=== PATIENT | male | born 1935 | race Two or more races ===

== ENCOUNTER 2016-12-21 23:59 | Emergency (ER) | payer OTHER ==
[~2016-12-21] VITALS: Ht 180.3 cm; Wt 72.6 kg
[~2016-12-21 23:59] MED LIST: AMIO200T2 PO; ASPI-605 PO; ATOR40TA PO; CARV40CP PO; CHOL200026 PO; CLOP75TA2 PO; EZET10TA PO; GLIM2TAB2 PO; LEVO125T8 PO; SITA100T PO; VALS80TA2 PO; WARF3TAB6 PO
[2016-12-22 00:05] VITALS: BP 95/53
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
[2016-12-22] MEDS ORDERED: IV NS 0.9% 1,000 ML ONE (00:29)
[2016-12-22] MEDS ORDERED: IV SET PRIMARY 1 EA INFUS.SET MC ONE (00:29)
[2016-12-22] MEDS ORDERED: IV NS 0.9% 1,000 ML BAG IV ONE (00:30)
[2016-12-22 00:32] LABS: BASOPHILS % (AUTO) 0.5 % (0.0-2.0); EOSINOPHILS # (AUTO) 0.2 /CMM (0.0-0.7); EOSINOPHILS % (AUTO) 3.2 % (0.0-6.0); HEMATOCRIT 37 % (39-51); HEMOGLOBIN 12.1 g/dL (13.5-17.5); LYMPHOCYTES # (AUTO) 0.8 /CMM (0.8-4.8); LYMPHOCYTES % (AUTO) 16.1 % (20.0-44.0); MEAN CORPUSCULAR HEMOGLOBIN 32 PG (26.0-33.0); MEAN CORPUSCULAR HGB CONC 33 g/dl (31.0-36.0); MEAN CORPUSCULAR VOLUME 97 fL (80-96); MONOCYTES # (AUTO) 0.3 /CMM (0.1-1.30); MONOCYTES % (AUTO) 5.7 % (2.0-12.0); NEUTROPHILS # (AUTO) 3.7 /CMM (1.8-8.9); NEUTROPHILS % (AUTO) 74.5 % (43.0-81.0); PLATELET COUNT (AUTO) 261 /CMM (150-450); RDW COEFFICIENT OF VARIATION 14.2 (11.5-15.0); RED BLOOD CELL COUNT(AUTO) 3.82 MIL/uL (4.5-6.0)
[2016-12-22 00:42] LABS: CALCIUM, SERUM 8.8 mg/dL (8.5-10.1); CARBON DIOXIDE 25 mmol/L (21-32); CHLORIDE 103 mmol/L (98-107); CREATININE 1.7 mg/dL (0.6-1.3); GLUCOSE 279 mg/dL (74-106); POTASSIUM 4.7 mmol/L (3.5-5.1); SODIUM SERUM 139 mmol/L (136-145); UREA NITROGEN, BLOOD 26 mg/dL (7-18)
[2016-12-22 00:46] LABS: INR 1.07 (0.87-1.13); PROTHROMBIN TIME 11.5 SECS (9.5-12.7)
[2016-12-22 00:50] LABS: TROPONIN I < 0.017 ng/mL (0.00-0.056)
[2016-12-22 00:52] LABS: ALANINE AMINOTRANSFERASE 15 U/L (12-78); ALBUMIN 3.2 g/dL (3.4-5.0); ALKALINE PHOSPHATASE 50 U/L (46-116); ASPARTATE AMINOTRANSFERASE 13 U/L (15-37); BILIRUBIN,DIRECT 0.1 mg/dL (0.0-0.2); BILIRUBIN,TOTAL 0.3 mg/dL (0.2-1.0); TOTAL PROTEIN, SERUM 6.9 g/dL (6.4-8.2)
== END 2016-12-22 01:53 | disposition left against medical advice (07) ==
LOC: ER 12-22 00:01
DX: R55 Syncope and collapse (principal); E11.9 Type 2 diabetes mellitus without complications; I25.2 Old myocardial infarction; I10 Essential (primary) hypertension; Z79.01 Long term (current) use of anticoagulants; Z79.82 Long term (current) use of aspirin; Z95.0 Presence of cardiac pacemaker
CPT/HCPCS: 36415; 70450; 71010; 80048; 80076; 84484; 85025; 85730; 93005; 96360; 99285; A4606; J7030; Z7610

== ENCOUNTER 2017-06-03 07:57 | Inpatient (IN) | payer MEDICAID, OTHER ==
[~2017-06-03] VITALS: Ht 154.9 cm; Wt 68.0 kg
--- NOTE | 2017-06-03 07:59 | NUR ---
BB C/O HEMATURIA, DYSURIA x 2 DAYS LEFT ELBOW PAIN/SWELLING x 1 DAY
--- NOTE | 2017-06-03 08:15 | NUR ---
DR SULTANA AT BEDSIDE FOR EVAL
--- NOTE | 2017-06-03 08:20 | NUR ---
URINE SAMPLE COLLECTED SENT TO LAB
[2017-06-03 08:38] LABS: APPEARANCE,URINE CLOUDY (CLEAR); BILIRUBIN,URINE NEGATIVE (NEGATIVE); BLOOD, URINE 3+ Ery/uL (NEGATIVE); COLOR,URINE RED (YELLOW); KETONES,URINE NEGATIVE (NEGATIVE); LEUKOCYTE ESTERASE ,URINE NEGATIVE (NEGATIVE); NITRITE, URINE NEGATIVE (NEGATIVE); PROTEIN,URINE 2+ mg/dl (NEGATIVE); UGLUCOSE NEGATIVE (NEGATIVE); UROBILINOGEN,URINE 0.2 EU/dL (0.2)
[2017-06-03 08:45] LABS: BACTERIA,URINE Few /HPF (None Seen); RBC,URINE TOO NUMEROUS TO COUN /HPF (0-2); SQUAMOUS EPITHELIAL CELL,UR 0-2 /HPF (None Seen)
[2017-06-03 08:46] LABS: BASOPHILS % (AUTO) 0.4 % (0.0-2.0); EOSINOPHILS # (AUTO) 0.2 /CMM (0.0-0.7); EOSINOPHILS % (AUTO) 2.7 % (0.0-6.0); HEMATOCRIT 35 % (39-51); HEMOGLOBIN 11.6 g/dL (13.5-17.5); LYMPHOCYTES % (AUTO) 17.4 % (20.0-44.0); MEAN CORPUSCULAR HEMOGLOBIN 32 PG (26.0-33.0); MEAN CORPUSCULAR HGB CONC 34 g/dl (31.0-36.0); MEAN CORPUSCULAR VOLUME 97 fL (80-96); MONOCYTES # (AUTO) 0.5 /CMM (0.1-1.30); MONOCYTES % (AUTO) 8.8 % (2.0-12.0); NEUTROPHILS # (AUTO) 4.1 /CMM (1.8-8.9); NEUTROPHILS % (AUTO) 70.7 % (43.0-81.0); PLATELET COUNT (AUTO) 212 /CMM (150-450); RDW COEFFICIENT OF VARIATION 13.4 (11.5-15.0); RED BLOOD CELL COUNT(AUTO) 3.58 MIL/uL (4.5-6.0); WHITE BLOOD COUNT (AUTO) 5.8 K/uL (4.3-11.0)
[2017-06-03 08:58] LABS: CALCIUM, SERUM 8.7 mg/dL (8.5-10.1); CARBON DIOXIDE 27 mmol/L (21-32); CHLORIDE 105 mmol/L (98-107); CREATININE 1.2 mg/dL (0.6-1.3); GLUCOSE 100 mg/dL (74-106); POTASSIUM 4.6 mmol/L (3.5-5.1); SODIUM SERUM 139 mmol/L (136-145); UREA NITROGEN, BLOOD 24 mg/dL (7-18)
[2017-06-03 09:40] LABS: INR > 10.00 (0.87-1.13); PROTHROMBIN TIME > 100.0 SECS (9.5-12.7)
[2017-06-03 09:41] LABS: PARTIAL THROMBOPLASTIN TIME 70 SEC (23-34)
--- NOTE | 2017-06-03 09:43 | NUR ---
CRITICAL LABS REPORTED TO DR. BRADY. FAJARDO TO ADD NEW ORDERS.
--- NOTE | 2017-06-03 09:45 | NUR ---
NEW IV STARTED ON LAC, 20 G. BLOOD DRAWN AND SENT TO LAB.
--- NOTE | 2017-06-03 09:59 | NUR ---
ERICKA OCAMPO FOR ADMISSION
[2017-06-03] MEDS ORDERED: PHYTONADIONE 5 MG TABLET PO ONE ×2 (10:00→10:30)
[2017-06-03] MEDS ORDERED: NS 0.9% IV ONE (10:30)
[2017-06-03] MEDS ORDERED: PHYTONADIONE IV ONE (10:30)
--- NOTE | 2017-06-03 10:46 | NUR ---
REPORT GIVEN TO ESTEBAN REINOSO FOR ADMISSION.
--- NOTE | 2017-06-03 11:07 | NUR ---
PATIENT TRANSPORTED TO [facility] VIA WHEELCHAIR FOR ADMISSION. RNESTEBAN TO PROVIDE KAROLINA.
--- NOTE | 2017-06-03 11:15 | NUR ---
RN INITIAL NOTE PATIENT ARRIVES TO THE UNIT IN WHEEL CHAIR FROM ED . PATIENT IS ON ROOM AIR VITALS WITHIN NORMAL LIMITED , NOTED HEMAURIA UPON USING THE REST ROOM , PATIENT HAS NO COMPLAINTS OF PAIN, OR SOB NOTED , PATIENT HAS NOTED BRUISE ON HIS LEFT ELBOW MINOR SWELLING NOTED , PAIN STATES NO PAIN , PATIENT STATES HE WANTS TO KEEP HIS PERSONAL CLOTHES ON , RN UNABLE TO TAKE A PICTURE OF THE PATIENTS ARM HOWEVER WILL ENDORSE TO PM SHIFT. PATIENT RESTING IN BED RN WILL CONTINUE TO MONITOR AT BEDSIDE. AND HELP TRANSLATE PATIENT ONLY INDONESIAN SPEAKING
[2017-06-03] MEDS ORDERED: MAGNESIUM HYDROXIDE 30 ML UDC PO PRN (11:30)
[2017-06-03] MEDS ORDERED: HYDROCODONE/APAP 5/325MG 1 EACH TABLET PO PRN (11:30)
[2017-06-03] MEDS ORDERED: Z GUARD REMEDY 2 OZ OINT TP PRN (11:30)
[2017-06-03] MEDS ORDERED: ONDANSETRON HCL/PF 4 MG/2 ML VIAL IVP PRN (11:30)
[2017-06-03] MEDS ORDERED: ZOLPIDEM TARTRATE 5 MG TABLET PO PRN (11:30)
[2017-06-03] MEDS ORDERED: DEXTROSE 50%-WATER 50 ML DISP.SYRIN IV PRN (11:30)
[2017-06-03] MEDS ORDERED: ACETAMINOPHEN 325 MG TABLET PO PRN (11:30)
[2017-06-03] MEDS ORDERED: MAG HYDROX/AL HYDROX/SIMETH 30 ML UDC PO PRN (11:30)
[2017-06-03] MEDS: BLOOD SUGAR DIAGNOSTIC 1 EACH STRIP VI SCH ×3 (12:36→22:35)
[2017-06-03] MEDS: CHOLECALCIFEROL 1,000 UNIT TABLET (VIT D3) PO SCH (12:38)
[2017-06-03] MEDS: INSULIN REGULAR, HUMAN 100 UNIT/ML 3 ML VIAL SQ PRN ×2 (12:40→17:44)
[2017-06-03 16:00] VITALS: BP 129/67
[2017-06-03] MEDS: ATORVASTATIN 40 MG TABLET PO SCH (17:41)
--- NOTE | 2017-06-03 17:57 | NUR ---
RN NOTE PATIENT STABLE THROUGHOUT THE DAY NO COMPLAINTS OF PAIN OR SOB NOTED , PATIENT ARM DRESSED WITH MEPILEX AND BURN NET PER PATIENTS REQUEST PATIENT HAS LEFT BUT NUMBER HAS BEEN PLACE ON PATIENT BORDER IF WE NEED ANYTHING. PATIENT COMPLAINED THAT TV IN RM 105 NOT WORKING PROPERLY ENGINEERING CONTACTED AND STATED THEY HAVE A WORK ORDER FOR THE AM TO FIX IT. PATIENT CBG CHECKED X2 BOTH TIME PATIENT BLOOD SUGAR WAS ELEVATED HOWEVER PATIENT AND STATES HE DOES NOT TAKE INSULIN AT HOME AND DECLINE IT AT THIS TIME , RN WILL CONTINUE TO FOLLOW AND ENDORSE CARE TO PM RN
--- NOTE | 2017-06-03 19:15 | NUR ---
RN INITIAL NOTES RECEIVED PATIENT AWAKE AND ALERT, PATIENT IS THAI SPEAKING WITH AT BEDSIDE. PATIENT'S NEEDS ANTICIPATED AND MET AT THIS TIME. PATIENT WITH NO C/O PAIN AND DISCOMFORT. NOT IN ANY FORM OF DISTRESS. PATIENT IS ON ROOM AIR. L AC G20, FLUSHED AND PATENT, NO SIGNS OF INFILTRATION. WILL MONITOR PATIENT FOR FURTHER BLEEDING/BRUISING. PATIENT REPORTS HEMATURIA AND DYSURIA AT THIS TIME. NEEDS ANTICIPATED AND MET. SAFETY AND COMFORT ENSURED. BED IN LOW AND LOCKED POSITION. CALL LIGHT IN REACH. WILL MONITOR.
[2017-06-03 20:00] VITALS: BP 134/67
--- NOTE | 2017-06-03 22:30 | NUR ---
RN NOTES PATIENT'S BLOOD SUGAR CHECKED, NOTED TO BE 83, NO INSULIN GIVEN PER SLIDING SCALE.
[2017-06-03] MEDS: CARVEDILOL 12.5 MG TABLET PO SCH (22:32)
[2017-06-04 04:00] VITALS: BP 110/56
--- NOTE | 2017-06-04 06:47 | NUR ---
RN CLOSING NOTES PATIENT SLEEPING COMFORTABLY AT THIS TIME, NO DISTRESS, ON ROOM AIR. PATIENT'S NEEDS ANTICIPATED AND MET. ALL DUE MEDS GIVEN ORDERED. AM LABS DRAWN. SAFETY AND COMFORT ENSURED. BED IN LOW AND LOCKED POSITION. CALL LIGHT IN REACH. WILL ENDORSE ACCORDINGLY FOR CONTINUITY OF CARE.
[2017-06-04 07:04] LABS: BASOPHILS % (AUTO) 0.3 % (0.0-2.0); EOSINOPHILS # (AUTO) 0.2 /CMM (0.0-0.7); EOSINOPHILS % (AUTO) 3.1 % (0.0-6.0); HEMATOCRIT 32 % (39-51); HEMOGLOBIN 10.7 g/dL (13.5-17.5); LYMPHOCYTES % (AUTO) 18.7 % (20.0-44.0); MEAN CORPUSCULAR HEMOGLOBIN 33 PG (26.0-33.0); MEAN CORPUSCULAR HGB CONC 34 g/dl (31.0-36.0); MEAN CORPUSCULAR VOLUME 97 fL (80-96); MONOCYTES # (AUTO) 0.5 /CMM (0.1-1.30); MONOCYTES % (AUTO) 9.5 % (2.0-12.0); NEUTROPHILS # (AUTO) 3.7 /CMM (1.8-8.9); NEUTROPHILS % (AUTO) 68.4 % (43.0-81.0); PLATELET COUNT (AUTO) 178 /CMM (150-450); RDW COEFFICIENT OF VARIATION 13.7 (11.5-15.0); RED BLOOD CELL COUNT(AUTO) 3.26 MIL/uL (4.5-6.0); WHITE BLOOD COUNT (AUTO) 5.4 K/uL (4.3-11.0)
[2017-06-04 07:15] LABS: INR 3.76 (0.87-1.13); PROTHROMBIN TIME 43.8 SECS (9.5-12.7)
--- NOTE | 2017-06-04 07:34 | NUR ---
INITIAL MS RN NOTE RCVD PT AWAKE AND ALERT, GABONESE SPEAKING. SHOWING NO S/O DISTRESS OR C/O PAIN AT THIS TIME. ON RA TOLERATING WELL. AMBULATORY WITH STEADY GAIT. BRP PRIVILEGES. IV SITE C/D/I/PATENT. NO S/O INFILTRATION/PHLEBITIS OBSERVED UPON FLUSHING. WILL CONTINUE TO MONITOR PT FOR SAFETY AND COMFORT. CALL LIGHT WITHIN REACH. BED IN LOW AND LOCKED POSITION.
[2017-06-04 07:37] LABS: CALCIUM, SERUM 8.2 mg/dL (8.5-10.1); CARBON DIOXIDE 28 mmol/L (21-32); CHLORIDE 105 mmol/L (98-107); CREATININE 1.2 mg/dL (0.6-1.3); GLUCOSE 124 mg/dL (74-106); MAGNESIUM 1.7 mg/dL (1.8-2.4); PHOSPHORUS 3.3 mg/dL (2.5-4.9); POTASSIUM 4.3 mmol/L (3.5-5.1); SODIUM SERUM 139 mmol/L (136-145); UREA NITROGEN, BLOOD 22 mg/dL (7-18)
[2017-06-04 08:00] VITALS: BP 119/61
[2017-06-04] MEDS: PANTOPRAZOLE 40 MG TABLET.DR PO SCH (08:29)
[2017-06-04] MEDS: BLOOD SUGAR DIAGNOSTIC 1 EACH STRIP VI SCH ×4 (08:29→21:43)
[2017-06-04] MEDS: CARVEDILOL 12.5 MG TABLET PO SCH ×2 (08:30→21:35)
[2017-06-04] MEDS: LEVOTHYROXINE SODIUM 125 MCG TABLET PO SCH (08:30)
[2017-06-04] MEDS: VALSARTAN 80 MG TABLET PO SCH (08:30)
[2017-06-04] MEDS: CHOLECALCIFEROL 1,000 UNIT TABLET (VIT D3) PO SCH (08:30)
[2017-06-04] MEDS: EZETIMIBE 10 MG TABLET PO SCH (08:30)
[2017-06-04] MEDS: AMIODARONE HCL 200 MG TABLET PO SCH (08:32)
[2017-06-04] MEDS: Magnesium 1GM/D5W 100ML PREMIX 100 ML IV SCH ×2 (10:12→11:11)
--- NOTE | 2017-06-04 11:20 | NUR ---
MS RN NOTE PT'S AT BEDSIDE UPDATED ON PT'S CONDITION. DR. OCAMPO ASSESSED PT.
[2017-06-04] MEDS: INSULIN REGULAR, HUMAN 100 UNIT/ML 3 ML VIAL SQ PRN (11:54)
--- NOTE | 2017-06-04 15:21 | NUR ---
MS RN NOTE VIA INDUSTRIAL WASTE INSPECTOR PT WAS ASKED ABOUT BED BATH. PT REFUSES BED BATH AT THIS TIME.
[2017-06-04 16:00] VITALS: BP 112/56
[2017-06-04] MEDS: ATORVASTATIN 40 MG TABLET PO SCH (17:04)
--- NOTE | 2017-06-04 17:13 | NUR ---
Per report,patient lives at home with family. He is ambulatory and independent with adl's. Has good family support.No DME or homehealth reported. Addendum: 06/04/17 at 1713 by JOSE CHAUDHARY RN Amended: Links added.
--- NOTE | 2017-06-04 19:09 | NUR ---
MS RN NOTE PT REMAINS STABLE, NO S/O BLEEDING OBSERVED. PT'S CARE ENDORSED TO CONVEX GRINDER RN FOR CONTINUITY OF CARE.
[2017-06-04 20:00] VITALS: BP_SYST 116; BP_SYST 152; BP_DIAS 104; BP_DIAS 57
--- NOTE | 2017-06-04 20:00 | NUR ---
RN INITIAL NOTES RECEIVED PATIENT IN BED, DENIES ANY PAIN AND DISCOMFORT. NO ACUTE BLEEDING NOTED. ON ROOM AIR WITH NO DISTRESS. L AC G20, FLUSHED AND PATENT. NEEDS ANTICIPATED AND MET.SAFETY AND COMFORT ENSURED. BED IN LOW AND LOCKED POSITION. CALL LIGHT IN REACH. WILL MONITOR.
[2017-06-04] MEDS: *INSULIN REGULAR(HUMULIN R)HUM 100 UNIT/ML VIAL SQ PRN (21:47)
--- NOTE | 2017-06-04 21:48 | NUR ---
RN NOTES [id number]. PATIENT AND PATIENT'S , KATHIA, NOTIFIED OF THE BS LEVEL. EXPLAINED THE RISKS AND BENEFITS OF INSULIN ADMINISTRATION PER SLIDING SCALE. PATIENT AND FAMILY STRONGLY REFUSED, PER (LOCKSTITCH BACK MAKER) PATIENT IS NOT USED OR USING INSULIN AND DOES NOT WANT TO BE DEPENDENT ON IT. HOME MEDS REVIEWED, PATIENT WAS TAKING JANUVIA AND GLIMEPIRIDE, CURRENTLY BEING HELD UPON ADMIT, WILL F/UP ACCORDINGLY WITH MD FOR FURTHER ORDERS. HEALTH TEACHING PROVIDED TO PATIENT AND FAMILY. WILL MONITOR FOR ANY SIGNS OF HYPO/HYPERGLYCEMIA.
[2017-06-05 04:00] VITALS: BP 113/52
--- NOTE | 2017-06-05 06:45 | NUR ---
RN CLOSING NOTES PATIENT WITH NO ACUTE DISTRESS AND CHANGE IN CONDITION OBSERVED OVERNIGHT. ALL DUE MEDS GIVEN ORDERED. AM LABS DRAWN. SAFETY AND COMFORT ENSURED. BED IN LOW AND LOCKED POSITION. CALL LIGHT IN REACH. WILL ENDORSE ACCORDINGLY FOR CONTINUITY OF CARE.
--- NOTE | 2017-06-05 07:05 | NUR ---
MS RN NOTE RECEIVED PT AWAKE WALKING IN ROOM WITH STEADY GAIT. PT IS DIVEHI SPEAKING, ON RA, RESPIRATIONS EVEN AND UNLABORED WITH NO SOB. LAC INTACT AND PATENT. BED LOW, LOCKED, X2 SIDE RAILS UP WITH CALL LIGHT WITHIN REACH. WILL CONT TO MONITOR.
[2017-06-05] MEDS: BLOOD SUGAR DIAGNOSTIC 1 EACH STRIP VI SCH ×4 (07:46→21:07)
[2017-06-05 08:00] VITALS: BP 111/60
[2017-06-05] MEDS: CARVEDILOL 12.5 MG TABLET PO SCH ×2 (08:52→21:08)
[2017-06-05] MEDS: EZETIMIBE 10 MG TABLET PO SCH (08:52)
[2017-06-05] MEDS: AMIODARONE HCL 200 MG TABLET PO SCH (08:52)
[2017-06-05] MEDS: LEVOTHYROXINE SODIUM 125 MCG TABLET PO SCH (08:52)
[2017-06-05] MEDS: CHOLECALCIFEROL 1,000 UNIT TABLET (VIT D3) PO SCH (08:53)
[2017-06-05] MEDS: VALSARTAN 80 MG TABLET PO SCH (08:53)
[2017-06-05] MEDS: PANTOPRAZOLE 40 MG TABLET.DR PO SCH (08:53)
[2017-06-05] MEDS: INSULIN REGULAR, HUMAN 100 UNIT/ML 3 ML VIAL SQ PRN ×3 (08:58→18:35)
[2017-06-05 09:08] LABS: CALCIUM, SERUM 8.9 mg/dL (8.5-10.1); CARBON DIOXIDE 28 mmol/L (21-32); CHLORIDE 104 mmol/L (98-107); CREATININE 1.3 mg/dL (0.6-1.3); GLUCOSE 152 mg/dL (74-106); POTASSIUM 4.6 mmol/L (3.5-5.1); SODIUM SERUM 140 mmol/L (136-145); UREA NITROGEN, BLOOD 20 mg/dL (7-18)
[2017-06-05 09:12] LABS: BASOPHILS % (AUTO) 0.3 % (0.0-2.0); EOSINOPHILS # (AUTO) 0.2 /CMM (0.0-0.7); EOSINOPHILS % (AUTO) 2.6 % (0.0-6.0); HEMATOCRIT 35 % (39-51); HEMOGLOBIN 11.6 g/dL (13.5-17.5); LYMPHOCYTES # (AUTO) 0.9 /CMM (0.8-4.8); LYMPHOCYTES % (AUTO) 13.7 % (20.0-44.0); MEAN CORPUSCULAR HEMOGLOBIN 32 PG (26.0-33.0); MEAN CORPUSCULAR HGB CONC 33 g/dl (31.0-36.0); MEAN CORPUSCULAR VOLUME 97 fL (80-96); MONOCYTES # (AUTO) 0.5 /CMM (0.1-1.30); MONOCYTES % (AUTO) 8.4 % (2.0-12.0); NEUTROPHILS # (AUTO) 4.7 /CMM (1.8-8.9); PLATELET COUNT (AUTO) 211 /CMM (150-450); RDW COEFFICIENT OF VARIATION 13.7 (11.5-15.0); RED BLOOD CELL COUNT(AUTO) 3.65 MIL/uL (4.5-6.0); WHITE BLOOD COUNT (AUTO) 6.3 K/uL (4.3-11.0)
[2017-06-05 09:13] LABS: ALANINE AMINOTRANSFERASE 22 U/L (12-78); ALBUMIN 3.6 g/dL (3.4-5.0); ALKALINE PHOSPHATASE 49 U/L (46-116); ASPARTATE AMINOTRANSFERASE 19 U/L (15-37); BILIRUBIN,TOTAL 0.7 mg/dL (0.2-1.0); PHOSPHORUS 3.2 mg/dL (2.5-4.9); TOTAL PROTEIN, SERUM 7.4 g/dL (6.4-8.2)
[2017-06-05 09:18] LABS: INR 3.71 (0.87-1.13); PROTHROMBIN TIME 43.2 SECS (9.5-12.7)
[2017-06-05 16:00] VITALS: BP 128/83
[2017-06-05 16:15] VITALS: BP_SYST 115; BP_SYST 128; BP_DIAS 47; BP_DIAS 83
[2017-06-05] MEDS: ATORVASTATIN 40 MG TABLET PO SCH (18:35)
--- NOTE | 2017-06-05 19:00 | NUR ---
MS RN NOTE: NO ACUTE CHANGES DURING SHIFT. PATIENT REMAINS AWAKE AND ORIENTED. ORDERS CARRIED OUT. BED LOW, LOCKED, X2 SIDE RAILS UP WITH CALL LIGHT WITHIN REACH. WILL ENDORSE TO ENGINEERING PROGRAM MANAGER NURSE FOR KAROLINA.
--- NOTE | 2017-06-05 19:50 | NUR ---
RN INITIAL NOTES: RECEIVED REPORT FROM MEAGHAN RN, PT IN BED, AWAKE, A/O X3, RESPIRATION EVEN AND UNLABORED, NO FACIAL GRIMACE NOTED, PT UZBEK SPEAKING, RECEIVED WITHOUT IV ACCESS, PRESSURED DRESSING NOTED ON LFA. PT REFUSING SCD, SAFETY PRECAUTIONS FOR FALL INITIATED CALL LIGHT IN REACH, WILL CONTINUE TO MONITOR
[2017-06-05 20:00] VITALS: BP 131/64
--- NOTE | 2017-06-05 21:00 | NUR ---
RN NOTES: REINSERTED NEW IV ACCESS, Garfield GILMORE G 22, HL
[2017-06-05] MEDS: *INSULIN REGULAR(HUMULIN R)HUM 100 UNIT/ML VIAL SQ PRN (21:07)
--- NOTE | 2017-06-05 21:30 | NUR ---
ACCU CHECK: BLOOD SUGAR CHECKED AND REVEAL 103, NO INSULIN COVERAGE GIVEN PER SLIDING SCALE, WILL MONITOR PT FOR ANY S/S OF HYPO OR HYPERGLYCEMIA
[2017-06-05 22:00] VITALS: BP 120/57
[2017-06-06 04:00] VITALS: BP 114/57
[2017-06-06] MEDS: INSULIN REGULAR, HUMAN 100 UNIT/ML 3 ML VIAL SQ PRN (06:15)
[2017-06-06] MEDS: BLOOD SUGAR DIAGNOSTIC 1 EACH STRIP VI SCH (06:15)
--- NOTE | 2017-06-06 06:15 | NUR ---
ACCU CHECK: BLOOD SUGAR TAKEN AND REVEAL 110, NO INSULIN COVERAGE GIVEN PER SLIDING SCALE, WILL MONITOR PT FOR ANY S/S OF HYPO OR HYPERGLYCEMIA
--- NOTE | 2017-06-06 06:51 | NUR ---
RN CLOSING NOTES: PT IN BED, AWAKE, NO SOB NOTED, DENIES ANY PAIN OR DISCOMFORT, NO ACTIVE BLEEDING NOTED, VS REMAINS STABLE, NEEDS ATTENDED, SAFETY PRECAUTIONS FOR FALL REMAINS ENGAGED, CALL LIGHT IN REACH, WILL ENDORSE TO DAY RN FOR KAROLINA.
[2017-06-06 07:05] LABS: INR 3.99 (0.87-1.13); PROTHROMBIN TIME 46.6 SECS (9.5-12.7)
[2017-06-06] MEDS: PANTOPRAZOLE 40 MG TABLET.DR PO SCH (07:30)
--- NOTE | 2017-06-06 07:30 | NUR ---
MS RN NOTES RECEIVED PATIENT A/OX4 DENIES SOB, DIFFICULTY BREATHING OR PAIN. PATIENT STATES NO MORE BLOOD IN URINE AND NO ACTIVE BLEEDING. ALL NEEDS IN REACH, BED LOWERED AND LOCKED, RAILS UPX3 FOR SAFETY AND WILL ROUND Q2H OR LESS PER NEEDS. ASSISTED TRANSLATION WITH RT AT BEDSIDE.
[2017-06-06 08:00] VITALS: BP 116/64
[2017-06-06] MEDS: EZETIMIBE 10 MG TABLET PO SCH (08:16)
[2017-06-06] MEDS: LEVOTHYROXINE SODIUM 125 MCG TABLET PO SCH (08:16)
[2017-06-06] MEDS: CHOLECALCIFEROL 1,000 UNIT TABLET (VIT D3) PO SCH (08:16)
[2017-06-06] MEDS: AMIODARONE HCL 200 MG TABLET PO SCH (08:18)
[2017-06-06 08:19] VITALS: BP 116/64
[2017-06-06] MEDS: CARVEDILOL 12.5 MG TABLET PO SCH (08:19)
[2017-06-06] MEDS: VALSARTAN 80 MG TABLET PO SCH (08:19)
--- NOTE | 2017-06-06 10:46 | NUR ---
MS CNMT PATIENT AT BEDSIDE. LAO SPEAKING. AND PATIENT EDUCATED ON DISCHARGE AND STATED ALL UNDERSTANDING. ALL DUE MEDS GIVEN AND ALL NEEDS MET. IV REMOVED PRESSURE AND DRESSING APPLIED NO BLEEDING NOTED. PATIENT REFUSED DC PHOTO OF SKIN. PATIENT REQUESTED KATHIA TO SIGN HIS DC MATERIAL SHE WAS TEACHING HIM THROUGH TRANSLATION. PATIENT VERBALIZED BACK NO BLOOD THINNERS UNTIL HE SEES HIS MD FOR FOLLOW UP. ASSISTED TO PRIVATE CAR BY TRAVEL CLERK. PATIENT LEFT IN STABLE CONDITION NO COMPLICATIONS.
== END 2017-06-06 10:49 | disposition home or self-care (01) | DRG 696 ==
LOC: ER 07:58 → MEDSG1 11:01
PROVIDERS: ADMIT Internal Medicine; ATTEND Internal Medicine
DX: R31.9 Hematuria, unspecified (principal); I50.9 Heart failure, unspecified; I48.91 Unspecified atrial fibrillation; E11.9 Type 2 diabetes mellitus without complications; I10 Essential (primary) hypertension; E03.9 Hypothyroidism, unspecified; Z95.810 Presence of automatic (implantable) cardiac defibrillator; I25.2 Old myocardial infarction; Z98.890 Other specified postprocedural states; Z95.1 Presence of aortocoronary bypass graft; Z83.3 Family history of diabetes mellitus; Z82.49 Family history of ischemic heart disease and other diseases of the circulatory system; Z79.01 Long term (current) use of anticoagulants; Z79.82 Long term (current) use of aspirin; S50.00XA Contusion of unspecified elbow, initial encounter; S50.02XA Contusion of left elbow, initial encounter; X58.XXXA Exposure to other specified factors, initial encounter; Y92.009 Unspecified place in unspecified non-institutional (private) residence as the place of occurrence of the external cause; T45.515A Adverse effect of anticoagulants, initial encounter
CPT/HCPCS: 36415; 71010-TC; 80048-TC; 80053-TC; 81000-TC; 82962-TC; 83735-TC; 84100-TC; 85025-TC; 85610-TC; 85730-TC; 86850-TC; 87086-TC; 93307-TC; A4216; A4606; A6402; J1815; J3430; J3475; J7050; Z7610

== ENCOUNTER 2017-08-18 20:41 | Emergency (ER) | payer MEDICAID ==
[~2017-08-18] VITALS: Ht 180.3 cm; Wt 63.5 kg
[~2017-08-18 20:41] MED LIST changes: -WARF3TAB6 PO
--- NOTE | 2017-08-18 20:50 | NUR ---
TO BED 7 A 81 YO MALE PATIENT BIB C/O RUQ ABD PAIN RADIATING TO BACK. PATIENT IS AAOX4, VSS. PLACED ON CARDIAC AND VS MONITORING. SAFETY AND COMFORT MEASURES RENDERED.
--- NOTE | 2017-08-18 20:54 | NUR ---
DR CARMEN AT BEDSIDE TO EVALUATE PATIENT.
[2017-08-18] MEDS ORDERED: IV NS 0.9% 1,000 ML BAG IV ONE ×2 (21:00→22:00)
[2017-08-18] MEDS ORDERED: ONDANSETRON HCL/PF 4 MG/2 ML VIAL IVP ONE (21:00)
[2017-08-18] MEDS ORDERED: HYDROMORPHONE INJ 2 MG/ML DISP.SYRIN IV ONE (21:00)
--- NOTE | 2017-08-18 21:00 | NUR ---
STARTED A SALINE LOCK ON THE RIGHT FOREARM G18, BLOOD DRAWN AND CALLED LAB FOR EQUIPMENT PLANNER.
[2017-08-18] MEDS ORDERED: ONDANSETRON HCL/PF 4 MG/2 ML VIAL ONE (21:06)
[2017-08-18] MEDS ORDERED: HYDROMORPHONE INJ 2 MG/ML DISP.SYRIN ONE (21:06)
--- NOTE | 2017-08-18 21:08 | NUR ---
PATIENT TO CT.
[2017-08-18 21:19] LABS: BASOPHILS # (AUTO) 0.1 /CMM (0.0-0.2); BASOPHILS % (AUTO) 0.8 % (0.0-2.0); EOSINOPHILS # (AUTO) 0.2 /CMM (0.0-0.7); EOSINOPHILS % (AUTO) 2.1 % (0.0-6.0); HEMATOCRIT 35 % (39-51); HEMOGLOBIN 11.5 g/dL (13.5-17.5); LYMPHOCYTES # (AUTO) 0.5 /CMM (0.8-4.8); LYMPHOCYTES % (AUTO) 6.2 % (20.0-44.0); MEAN CORPUSCULAR HEMOGLOBIN 32 PG (26.0-33.0); MEAN CORPUSCULAR HGB CONC 33 g/dl (31.0-36.0); MEAN CORPUSCULAR VOLUME 95 fL (80-96); MONOCYTES # (AUTO) 0.2 /CMM (0.1-1.30); MONOCYTES % (AUTO) 2.1 % (2.0-12.0); NEUTROPHILS # (AUTO) 6.5 /CMM (1.8-8.9); NEUTROPHILS % (AUTO) 88.8 % (43.0-81.0); PLATELET COUNT (AUTO) 205 /CMM (150-450); RDW COEFFICIENT OF VARIATION 13.6 (11.5-15.0); RED BLOOD CELL COUNT(AUTO) 3.64 MIL/uL (4.5-6.0); WHITE BLOOD COUNT (AUTO) 7.5 K/uL (4.3-11.0)
--- NOTE | 2017-08-18 21:21 | NUR ---
MEDICATED PATIENT ORDERED BY DR CARMEN. ONGOING MONITORING.
[2017-08-18 21:33] LABS: INR 1.31 (0.87-1.13); PROTHROMBIN TIME 13.6 SECS (9.5-12.7)
[2017-08-18 21:35] LABS: ALANINE AMINOTRANSFERASE 17 U/L (12-78); ALBUMIN 3.6 g/dL (3.4-5.0); ALKALINE PHOSPHATASE 58 U/L (46-116); ASPARTATE AMINOTRANSFERASE 18 U/L (15-37); BILIRUBIN,DIRECT 0.1 mg/dL (0.0-0.2); BILIRUBIN,TOTAL 0.4 mg/dL (0.2-1.0); CALCIUM, SERUM 9.3 mg/dL (8.5-10.1); CARBON DIOXIDE 22 mmol/L (21-32); CHLORIDE 105 mmol/L (98-107); CREATININE 1.7 mg/dL (0.6-1.3); GLUCOSE 69 mg/dL (74-106); LIPASE 132 U/L (73-393); POTASSIUM 3.9 mmol/L (3.5-5.1); SODIUM SERUM 137 mmol/L (136-145); TOTAL PROTEIN, SERUM 7.1 g/dL (6.4-8.2); UREA NITROGEN, BLOOD 40 mg/dL (7-18)
[2017-08-18 21:37] LABS: TROPONIN I < 0.017 ng/mL (0.00-0.056)
[2017-08-18] MEDS ORDERED: DIATR MEGLU/DIATRIZOATE SODIUM 30 ML BOTTLE (GASTROGRAPHIN) ONE (21:50)
--- NOTE | 2017-08-18 22:07 | NUR ---
URINE COLLECTED VIA CLEAN CATCH, CALLED LAB FOR BUS AND TROLLEY INSPECTING DISPATCHER.
[2017-08-18 22:18] LABS: APPEARANCE,URINE SL CLOUDY (CLEAR); BILIRUBIN,URINE NEGATIVE (NEGATIVE); BLOOD, URINE NEGATIVE Ery/uL (NEGATIVE); COLOR,URINE YELLOW (YELLOW); KETONES,URINE TRACE (NEGATIVE); LEUKOCYTE ESTERASE ,URINE NEGATIVE (NEGATIVE); NITRITE, URINE NEGATIVE (NEGATIVE); PH,URINE 5.5 (5.0-8.0); PROTEIN,URINE NEGATIVE (NEGATIVE); UGLUCOSE NEGATIVE (NEGATIVE); UROBILINOGEN,URINE 0.2 EU/dL (0.2)
[2017-08-18 22:25] LABS: BACTERIA,URINE Rare /HPF (None Seen); RBC,URINE 0-2 /HPF (0-2); SQUAMOUS EPITHELIAL CELL,UR Rare /HPF (None Seen); WBC,URINE 0-2 /HPF (0-3)
--- NOTE | 2017-08-18 23:53 | NUR ---
patient is resting in bed. gastrograffin po given. awaiting for radiology for cta.
[2017-08-19] MEDS ORDERED: CT SWABBABLE VALVE TRANS SET 1 EA INFUS.SET MC ONE (00:04)
[2017-08-19] MEDS ORDERED: IOHEXOL-300 100 ML VIAL IV ONE (00:04)
[2017-08-19] MEDS ORDERED: IV NS 0.9% 250 ML IV ONE (00:04)
[2017-08-19] MEDS ORDERED: WARF3TAB6 PO (00:13)
--- NOTE | 2017-08-19 00:15 | NUR ---
back from cat scan of.
[2017-08-19] MEDS ORDERED: HYDROMORPHONE INJ 2 MG/ML DISP.SYRIN ONE (00:32)
[2017-08-19] MEDS ORDERED: IV NS 0.9% 1,000 ML BAG IV ONE (01:00)
[2017-08-19] MEDS ORDERED: HYDROMORPHONE 1 MG/1 ML DISP.SYRIN IV ONE (01:00)
--- NOTE | 2017-08-19 01:33 | NUR ---
DR. NELSON SPEAKING TO YAMILET FROM [facility] REGARDING POC / RESULTS
--- NOTE | 2017-08-19 02:10 | NUR ---
Patient is resting in bed, vss, nad noted.
--- NOTE | 2017-08-19 02:45 | NUR ---
CALLED [facility] FOR FOR AN UPDATE FROM [place], LEFT A MESSAGE, WAITING FOR A CALL BACK
--- NOTE | 2017-08-19 03:45 | NUR ---
CALLED AND SPOKE WITH MICHA AT [facility], HE STATES HE WILL CALL THE OGDEN SUPERVISIOR AND CALL US BACK WITHIN 10 MINUTES
--- NOTE | 2017-08-19 03:51 | NUR ---
[facility] ADMITTING : DR CHAVARRIA BED [phone] GIVE REPORT TO [phone] ETA INFUSION NURSE 30 MINS
--- NOTE | 2017-08-19 04:01 | NUR ---
Ongoing monitoring. Nad noted. vss.
--- NOTE | 2017-08-19 04:12 | NUR ---
SPOKE TO MATTY ESCOBAR [facility] ETA 20MINS
--- NOTE | 2017-08-19 04:28 | NUR ---
Report given to Rosy REINOSO from [facility].
[2017-08-19 04:29] VITALS: BP 113/72
--- NOTE | 2017-08-19 04:40 | NUR ---
Endorsed care to ambulanz ems. Patient remains alert and responsive. nad noted. vss. son at bedside.
== END 2017-08-19 04:41 | disposition short-term general hospital (02) ==
LOC: ER 20:42
DX: R10.30 Lower abdominal pain, unspecified (principal); R10.12 Left upper quadrant pain; K63.89 Other specified diseases of intestine; I10 Essential (primary) hypertension; I25.2 Old myocardial infarction; E11.9 Type 2 diabetes mellitus without complications; Z98.890 Other specified postprocedural states; Z79.82 Long term (current) use of aspirin; Z79.84 Long term (current) use of oral hypoglycemic drugs; Z95.0 Presence of cardiac pacemaker
CPT/HCPCS: 36415; 74160; 74176; 80048; 80076; 81001; 83690; 84484; 85025; 85730; 87081; 93005; 96361; 96374; 96375; 96376; 99285; A4606; J1170 ×2; J2405; J7030 ×3; J7050; Q9963; Q9967; Z7610; 81000-TC

== ENCOUNTER 2017-12-20 18:42 | Emergency (ER) | payer MEDICAID, OTHER ==
[~2017-12-20] VITALS: Ht 177.8 cm; Wt 57.6 kg
[~2017-12-20 18:42] MED LIST changes: -AMIO200T2 PO; +AMIO200T4 PO; +CLOP75TA15 PO; -CLOP75TA2 PO; -EZET10TA PO; +EZET10TA14 PO; +WARF3TAB59 PO
[2017-12-20 18:52] VITALS: BP 122/66
--- NOTE | 2017-12-20 19:01 | NUR ---
DR ZAMUDIO AT BEDSIDE FOR EVAL.
[2017-12-20] MEDS ORDERED: GELATIN SPONGE,ABSORBABLE 1 SPONGE SPONGE TP ONE (19:02)
[2017-12-20] MEDS ORDERED: SILVER SULFADIAZINE CREAM 25 GM TUBE ONE (19:02)
--- NOTE | 2017-12-20 20:03 | NUR ---
PRESSURE DRESSING APPLIED. NO BLEEDING NOTED. PT D/C HOME IN STABLE CONDITION.
== END 2017-12-20 20:06 | disposition home or self-care (01) ==
LOC: ER 18:43
DX: T82.838A Hemorrhage due to vascular prosthetic devices, implants and grafts, initial encounter (principal); Z99.2 Dependence on renal dialysis; N18.6 End stage renal disease; E11.22 Type 2 diabetes mellitus with diabetic chronic kidney disease; I12.0 Hypertensive chronic kidney disease with stage 5 chronic kidney disease or end stage renal disease; Z79.01 Long term (current) use of anticoagulants; Z79.82 Long term (current) use of aspirin; Z95.0 Presence of cardiac pacemaker; Z98.890 Other specified postprocedural states
CPT/HCPCS: A4606; Z7610

== ENCOUNTER 2018-01-15 02:42 | Emergency (ER) | payer OTHER ==
[~2018-01-15] VITALS: Ht 175.3 cm; Wt 70.3 kg
--- NOTE | 2018-01-15 02:53 | NUR ---
PT TO ER BED 8. BIB FAMILY C/O ANXIETY X 1 MONTH PER FAMILY. PT PLACED IN GOWN AND ON SOUND ENGINEERING TECHNICIAN. VSS/RESP EVEN UNLABORED/NAD NOTED/SKIN WARM AND DRY/DENIES N-V-D/AFEBRILE/AOX4. AWAITING MD HOWELL.
--- NOTE | 2018-01-15 03:15 | NUR ---
18G IV TO L FA X 2 ATTEMPTS USING ASEPTIC TECH, UNABLE TO DRAW BLOOD FOR LAB. IV FLUSHES EASILY WITH NS, NO S/S INFILTRATION NOTED.
[2018-01-15 03:35] LABS: BASOPHILS % (AUTO) 0.5 % (0.0-2.0); HEMATOCRIT 33 % (39-51); HEMOGLOBIN 10.7 g/dL (13.5-17.5); LYMPHOCYTES # (AUTO) 0.7 /CMM (0.8-4.8); LYMPHOCYTES % (AUTO) 15.4 % (20.0-44.0); MEAN CORPUSCULAR HGB CONC 33 g/dl (31.0-36.0); MEAN CORPUSCULAR VOLUME 100 fL (80-96); MONOCYTES # (AUTO) 0.4 /CMM (0.1-1.30); MONOCYTES % (AUTO) 9.5 % (2.0-12.0); NEUTROPHILS # (AUTO) 3.3 /CMM (1.8-8.9); NEUTROPHILS % (AUTO) 73.6 % (43.0-81.0); PLATELET COUNT (AUTO) 59 /CMM (150-450); RDW COEFFICIENT OF VARIATION 22.3 (11.5-15.0); RED BLOOD CELL COUNT(AUTO) 3.27 MIL/uL (4.5-6.0); WHITE BLOOD COUNT (AUTO) 4.4 K/uL (4.3-11.0)
[2018-01-15 03:45] LABS: CALCIUM, SERUM 8.8 mg/dL (8.5-10.1); CARBON DIOXIDE 33 mmol/L (21-32); CHLORIDE 102 mmol/L (98-107); GLUCOSE 117 mg/dL (74-106); POTASSIUM 3.9 mmol/L (3.5-5.1); SODIUM SERUM 140 mmol/L (136-145); UREA NITROGEN, BLOOD 16 mg/dL (7-18)
[2018-01-15 03:47] LABS: INR 1.14 (0.87-1.13)
[2018-01-15 03:51] LABS: TROPONIN I 0.021 ng/mL (0.00-0.056)
[2018-01-15 03:57] LABS: ALANINE AMINOTRANSFERASE 24 U/L (12-78); ALKALINE PHOSPHATASE 68 U/L (46-116); ASPARTATE AMINOTRANSFERASE 24 U/L (15-37); B-TYPE NATRIURETIC PEPTIDE 47339 PG/ML (0-125); BILIRUBIN,DIRECT 0.2 mg/dL (0.0-0.2); BILIRUBIN,TOTAL 0.7 mg/dL (0.2-1.0); TOTAL PROTEIN, SERUM 6.6 g/dL (6.4-8.2)
[2018-01-15 04:02] LABS: LYMPHOCYTES % (MANUAL) 18 % (16-48); MONOCYTES % (MANUAL) 6 % (0-11.0); NEUTROPHILS % (MANUAL) 76 (42-76)
[2018-01-15] MEDS ORDERED: FUROSEMIDE 40 MG/4 ML VIAL ONE (04:14)
--- NOTE | 2018-01-15 04:21 | NUR ---
MD AT BEDSIDE SPEAKING WITH PATIENT.
[2018-01-15] MEDS ORDERED: FUROSEMIDE 40 MG/4 ML VIAL IV ONE (04:30)
[2018-01-15 04:47] VITALS: BP 150/79
--- NOTE | 2018-01-15 04:49 | NUR ---
IV removed. Catheter intact and site benign. Pressure and 4x4 applied to site. No bleeding noted. Patient does not wish to proceed with medical care recommended by Dr. uJlien. Patient given information related to possible complications, up to and including , which could occur as a result of leaving the hospital at this time. Patient verbalizes understanding of risks involved due to leaving against medical advice. Patient has signed AMA form.
== END 2018-01-15 04:52 | disposition left against medical advice (07) ==
LOC: ER 02:44
DX: I13.2 Hypertensive heart and chronic kidney disease with heart failure and with stage 5 chronic kidney disease, or end stage renal disease (principal); I50.9 Heart failure, unspecified; N18.6 End stage renal disease; E11.22 Type 2 diabetes mellitus with diabetic chronic kidney disease; F41.9 Anxiety disorder, unspecified; Z79.01 Long term (current) use of anticoagulants; Z79.82 Long term (current) use of aspirin; Z95.0 Presence of cardiac pacemaker; Z99.2 Dependence on renal dialysis; Z53.20 Procedure and treatment not carried out because of patient's decision for unspecified reasons
CPT/HCPCS: 36415; 71045-TC; 80048-TC; 80076-TC; 83605-TC; 83880; 84484-TC; 85025-TC; 85730-TC; 87040-TC; A4606; J1940; Z7610

== ENCOUNTER 2018-01-19 15:15 | Emergency (ER) | payer OTHER ==
[~2018-01-19] VITALS: Ht 172.7 cm; Wt 58.5 kg
[~2018-01-19 15:15] MED LIST changes: +AMIO200T2 PO; -AMIO200T4 PO
--- NOTE | 2018-01-19 15:30 | NUR ---
BB FAMILY C/O HEAD LACERATION S/P GLF. KO+. ETOH+. HEMODIALYSIS M,W,F. A/OX 4 AT THIS TIME. BREATHING EVEN AND UNLABORED. NO SOB, NAD, VITALS STABLE. SAFETY AND COMFORT MEASURES IN PLACE. AWAITING MD ORDERS.
[2018-01-19 16:14] LABS: BASOPHILS % (AUTO) 0.5 % (0.0-2.0); EOSINOPHILS % (AUTO) 0.9 % (0.0-6.0); HEMATOCRIT 34 % (39-51); HEMOGLOBIN 11.5 g/dL (13.5-17.5); LYMPHOCYTES # (AUTO) 0.5 /CMM (0.8-4.8); LYMPHOCYTES % (AUTO) 12.6 % (20.0-44.0); MEAN CORPUSCULAR HEMOGLOBIN 34 PG (26.0-33.0); MEAN CORPUSCULAR HGB CONC 34 g/dl (31.0-36.0); MEAN CORPUSCULAR VOLUME 100 fL (80-96); MONOCYTES # (AUTO) 0.3 /CMM (0.1-1.30); MONOCYTES % (AUTO) 6.2 % (2.0-12.0); NEUTROPHILS # (AUTO) 3.3 /CMM (1.8-8.9); NEUTROPHILS % (AUTO) 79.8 % (43.0-81.0); PLATELET COUNT (AUTO) 53 /CMM (150-450); RDW COEFFICIENT OF VARIATION 19.6 (11.5-15.0); RED BLOOD CELL COUNT(AUTO) 3.41 MIL/uL (4.5-6.0); WHITE BLOOD COUNT (AUTO) 4.1 K/uL (4.3-11.0)
[2018-01-19 16:33] LABS: CALCIUM, SERUM 8.1 mg/dL (8.5-10.1); CARBON DIOXIDE 30 mmol/L (21-32); CHLORIDE 105 mmol/L (98-107); CREATININE 3.6 mg/dL (0.6-1.3); GLUCOSE 107 mg/dL (74-106); POTASSIUM 3.2 mmol/L (3.5-5.1); SODIUM SERUM 144 mmol/L (136-145); UREA NITROGEN, BLOOD 14 mg/dL (7-18)
[2018-01-19 16:42] LABS: BAND % (MANUAL) 8 % (0.0-5.0); LYMPHOCYTES % (MANUAL) 14 % (16-48); MONOCYTES % (MANUAL) 4 % (0-11.0); NEUTROPHILS % (MANUAL) 74 (42-76)
[2018-01-19 16:55] LABS: TROPONIN I < 0.017 ng/mL (0.00-0.056)
[2018-01-19 17:05] LABS: INR 1.09 (0.87-1.13)
[2018-01-19] MEDS ORDERED: GELATIN SPONGE,ABSORBABLE 1 SPONGE SPONGE TP ONE (17:15)
--- NOTE | 2018-01-19 17:25 | NUR ---
PRESSURE DRESSING APPLIED WITH GELFOAM PER DR. LORENZ.
--- NOTE | 2018-01-19 18:00 | NUR ---
REFUSED SECOND EKG, NOT DONE.
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
[2018-01-19 18:33] VITALS: BP 124/62
== END 2018-01-19 18:06 | disposition left against medical advice (07) ==
LOC: ER 15:16
DX: S09.8XXA Other specified injuries of head, initial encounter (principal); R94.31 Abnormal electrocardiogram [ECG] [EKG]; I12.0 Hypertensive chronic kidney disease with stage 5 chronic kidney disease or end stage renal disease; E11.22 Type 2 diabetes mellitus with diabetic chronic kidney disease; N18.6 End stage renal disease; Z95.0 Presence of cardiac pacemaker; I25.2 Old myocardial infarction; Z98.890 Other specified postprocedural states; Z99.2 Dependence on renal dialysis; Z79.01 Long term (current) use of anticoagulants; Z79.82 Long term (current) use of aspirin; W18.39XA Other fall on same level, initial encounter; Y93.89 Activity, other specified; Y92.89 Other specified places as the place of occurrence of the external cause; Y99.8 Other external cause status
CPT/HCPCS: 36415; 70450-TC; 71045-TC; 80048-TC; 84484-TC; 85025-TC; 85730-TC; A4606; A6402; G0480; Z7610